=== PATIENT | male | born 1980 | race Two or more races ===

== ENCOUNTER → 2017-04-01 | Outpatient (REF) | payer BC | LOC: M SFHCLERA 10:23 | PROVIDERS: ATTEND Nurse Practitioner Family | DX: J02.9 Acute pharyngitis, unspecified (principal) ==

== ENCOUNTER → 2017-11-01 | Outpatient (REF) | payer BC | LOC: M SFHCLERA 15:11 | PROVIDERS: ATTEND Nurse Practitioner Family | DX: J02.9 Acute pharyngitis, unspecified (principal) ==

== ENCOUNTER → 2018-12-09 | Outpatient (CLI) | payer BC ==
--- NOTE | 2018-12-09 16:54 | REP ---
LEFT HAND, FOUR VIEWS: HISTORY: Left 4th digit pain. There is no acute fracture or dislocation. The joint spaces are normal in appearance. IMPRESSION: There is no acute fracture or dislocation. Electronically Signed by Daniel Herrera MD 12/09/2018 05:01 P
== END ==
LOC: M LRY 16:04
PROVIDERS: ATTEND Physician Assistant
DX: S69.92XA Unspecified injury of left wrist, hand and finger(s), initial encounter (principal); X58.XXXA Exposure to other specified factors, initial encounter; Y92.89 Other specified places as the place of occurrence of the external cause